=== PATIENT | male | born 1945 | race Caucasian/White ===

== ENCOUNTER 2017-09-22 14:32 | Outpatient (CLI) ==
[2016-03-16 13:36] VITALS: BMI 51.3
== END 2017-09-22 14:33 | disposition home or self-care (01) ==
LOC: LAB 14:32
PROVIDERS: ATTEND Internal Medicine
DX: E78.5 Hyperlipidemia, unspecified (principal); I10 Essential (primary) hypertension; E66.9 Obesity, unspecified
CPT/HCPCS: 36415; 80053; 80061; 83036; 84443; 85025

== ENCOUNTER 2017-10-16 12:47 | Outpatient (CLI) ==
[2016-03-16 13:36] VITALS: BMI 51.3
== END 2017-10-16 12:48 | disposition home or self-care (01) ==
LOC: CAR 12:47
PROVIDERS: ATTEND Internal Medicine
DX: J44.9 Chronic obstructive pulmonary disease, unspecified (principal); I50.9 Heart failure, unspecified
CPT/HCPCS: 94761

== ENCOUNTER 2017-11-07 16:16 | Outpatient (CLI) ==
[2016-03-16 13:36] VITALS: BMI 51.3
== END 2017-11-07 16:17 | disposition home or self-care (01) ==
LOC: CAR 16:16
PROVIDERS: ATTEND Internal Medicine
DX: J44.9 Chronic obstructive pulmonary disease, unspecified (principal); G47.30 Sleep apnea, unspecified
CPT/HCPCS: 95811

== ENCOUNTER 2017-11-09 08:58 | Outpatient (CLI) ==
[2016-03-16 13:36] VITALS: BMI 51.3
== END 2017-11-09 08:59 | disposition home or self-care (01) ==
LOC: CAR 08:58
PROVIDERS: ATTEND Internal Medicine
DX: J44.9 Chronic obstructive pulmonary disease, unspecified (principal); J96.90 Respiratory failure, unspecified, unspecified whether with hypoxia or hypercapnia; I10 Essential (primary) hypertension; R06.02 Shortness of breath; I51.7 Cardiomegaly

== ENCOUNTER 2017-11-13 06:49 | Outpatient (CLI) ==
[2016-03-16 13:36] VITALS: BMI 51.3
--- NOTE | 2017-11-14 11:20 | ECHO2D ---
Date of Exam: 11/13/17 Ordering Physician: DR. COURTNEY EATON Room #: OP Reason for Echo: HYPERTENSION, LDH, SOB M-Mode Normal Adult Results LV Dimensions Normal Adult Results AoV Opening excursions >1.6 >1.6 LVEDD-base- 3.5-5.8 4.9 Ao root dimensions 2.0-3.7 3.2 LVESD-base- 3.1-4.6 L. Atrium dimensions 1.9-3.8 5.1 Post. Wall thickness 0.8-1.1 1.3 IV septum (thickness) 0.7-1.2 1.3 Post. Wall excursion 0.72-1.3 NORMAL Septal motion 0.8 Systolic motion R. Ventricular cavity 1.5-2.0 3.0 LVEF 60% 50% TO 55% Paradoxical septal wall motion NORMAL 2-D : NORMAL LEFT VENTRICULAR CONTRACTILITY--ENLARGED RIGHT VENTRICLE AND LEFT ATRIAL CAVITIES--NO EFFUSION, NO THROMBUS, VALVES NORMAL M-MODE: MV: NORMAL AV: NORMAL TV: NORMAL PV: CHAMBER SIZE: ENLARGED RIGHT VENTRICLE AND LEFT ATRIAL CAVITIES WALL MOTION: NORMAL PERICARDIUM: NORMAL INTERPRETATION: 1. LEFT VENTRICULAR HYPERTROPHY WITH ENLARGED LEFT ATRIAL CAVITY (5.1 CM) 2. NORMAL LEFT VENTRICULAR CONTRACTILITY WITH EJECTION FRACTION 50% TO 55% 3. ENLARGED RIGHT VENTRICLE CAVITY 4. NORMAL VALVES MTDD
== END 2017-11-13 06:50 | disposition home or self-care (01) ==
LOC: CAR 06:49
PROVIDERS: ATTEND Internal Medicine
DX: J44.9 Chronic obstructive pulmonary disease, unspecified (principal); J96.90 Respiratory failure, unspecified, unspecified whether with hypoxia or hypercapnia; I10 Essential (primary) hypertension; I51.7 Cardiomegaly; R06.02 Shortness of breath
CPT/HCPCS: 93005; 93010

== ENCOUNTER 2018-02-28 08:06 | Outpatient (CLI) ==
[2016-03-16 13:36] VITALS: BMI 51.3
== END 2018-02-28 08:07 | disposition home or self-care (01) ==
LOC: LAB 08:06
PROVIDERS: ATTEND Internal Medicine
DX: I48.91 Unspecified atrial fibrillation (principal); I10 Essential (primary) hypertension; E66.9 Obesity, unspecified; Z12.5 Encounter for screening for malignant neoplasm of prostate
CPT/HCPCS: 36415; 80053; 80061; 83036; 84443; 85025

== ENCOUNTER 2018-09-26 11:21 | Outpatient (CLI) ==
[2016-03-16 13:36] VITALS: BMI 51.3
== END 2018-09-26 11:22 | disposition home or self-care (01) ==
LOC: LAB 11:21
PROVIDERS: ATTEND Internal Medicine
DX: E88.81 Metabolic syndrome and other insulin resistance (principal); I48.91 Unspecified atrial fibrillation; E66.9 Obesity, unspecified; I10 Essential (primary) hypertension; I51.7 Cardiomegaly
CPT/HCPCS: 36415; 80053; 80061; 84439; 84443; 85025